=== PATIENT | female | born 1945 | race Hispanic/Latino ===

== ENCOUNTER 2017-10-21 10:18 | Emergency (ER) | payer OTHER, MEDICARE ==
[2017-10-21 10:21] VITALS: TEMP 97.8; O2SAT 98; BMI 25.0
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
--- NOTE | 2017-10-21 12:35 | RAD ---
Date of service: 10/21/2017 PROCEDURE: Cervical Spine Radiographs. HISTORY: Pain. COMPARISON: None. FINDINGS: BONES: Mild reversal cervical curvature. Curvature is also interrupted by a limited grade 1 spondylolisthesis at C5-6 was felt be degenerative. C5 is slightly posterior C6 on the basis of facet joint degenerative arthropathy. Facet joint degenerative changes are diffuse with posterior elements otherwise unremarkable. The odontoid process appears intact prevertebral paraspinal soft tissues diffusely unremarkable. No destructive bony lesion identified. DISC SPACES: Diminished in height for the most part with multilevel cervical spondylosis affects the mid inferior levels predominantly. SOFT TISSUES: Normal. No prevertebral soft tissue swelling. OTHER FINDINGS: None. IMPRESSION: Degenerative spondylolisthesis grade 1 C5-6 without fracture appreciated throughout the examination. Findings been reviewed and discussed with Dr. Tobar with written down and read back verification 10/21/2017 12:05 p.m..
[2017-10-21 15:11] VITALS: BP 160/78; PULSE 71; RESP 18
== END 2017-10-21 12:00 | disposition home or self-care (01) ==
LOC: H.ER 10:18
DX: S16.1XXA Strain of muscle, fascia and tendon at neck level, initial encounter (principal); V43.52XA Car driver injured in collision with other type car in traffic accident, initial encounter; Y92.410 Unspecified street and highway as the place of occurrence of the external cause